=== PATIENT | female | born 1930 | race Caucasian/White ===

== ENCOUNTER 2018-08-31 12:47 | Emergency (ER) | payer MEDICARE ==
[~2018-08-31] VITALS: Ht 165.1 cm; Wt 81.6 kg
[~2018-08-31 12:47] MED LIST: AMITRIPTYLINE H25 MG PO; ASPIRIN EC81 MG PO; FIORICET MT; OMEGA 3 FISH O1 EACH PO; ONDANSETRON ODT4 M1 SL; ONE DAILY FOR1 EACH PO; PROBIOTIC & AC1 EACH PO; SIMVASTATIN20 MG PO; VITAMIN C500 M1 PO; VITAMIN D31000 UNI1 PO; VITAMIN E400 UNIT PO; Z PROPRANOLOL HCL PO; Z.0.AMITRIPTYLINE H7 PO; Z.0.AMLODIPINE BESY1 PO; Z.0.ASPIR 8181 MG PO; Z.0.CLONIDINE HCL0.1 PO; Z.0.LEVOTHYROXINE75 PO; Z.0.LISINOPRIL10 MG MT; Z.0.LISINOPRIL5 MG PO; Z.0.PREMARIN0.625 MG PO; Z.0.ZESTRIL20 MG PO; [UNRECOGNIZED DRUG - OTHER] PO
[2018-08-31] MEDS ORDERED: MORPHINE SULFATE 2 MG/ML SYR IV STA (13:04)
[2018-08-31] MEDS ORDERED: PHENAZOPYRIDINE HCL 100 MG TAB PO ONE (13:15)
[2018-08-31] MEDS ORDERED: MORPHINE SULFATE INJ 4 MG/ML INJ IV NR (13:15)
[2018-08-31] MEDS ORDERED: PROMETHAZINE 12.5MG/ NACL 0.9% 12.5 MG/50 ML BAG IV ONE (13:30)
[2018-08-31 13:31] LABS: BASOPHILS # (AUTO) 0.1 (0.0-0.1); BASOPHILS % 0.5 % (0.0-1.0); EOSINOPHILS # (AUTO) 0.2 (0.0-0.4); HEMATOCRIT 40.8 % (34.2-44.1); HEMOGLOBIN 13.7 g/dL (12.0-16.0); LYMPHOCYTES # (AUTO) 2.4 (1.0-3.2); LYMPHOCYTES % 21.7 % (18.0-39.1); MEAN CORPUSCULAR HEMOGLOBIN 29.6 pg (28-32); MEAN CORPUSCULAR HGB CONC 33.6 g/dL (31-35); MEAN CORPUSCULAR VOLUME 88.1 fL (81-99); MONOCYTES # (AUTO) 0.8 (0.2-0.8); MONOCYTES % 6.8 % (4.4-11.3); NEUTROPHILS # (AUTO) 7.5 (2.1-6.9); NEUTROPHILS % 68.2 % (38.7-80.0); PLATELET COUNT 222 x10e3/uL (140-360); RED BLOOD COUNT 4.63 x10e6/uL (3.6-5.1); RED CELL DISTRIBUTION WIDTH 14.1 % (11.7-14.4)
[2018-08-31 14:00] LABS: ALANINE AMINOTRANSFERASE 39 IU/L (0-55); ALBUMIN/GLOBULIN RATIO 1.2 (0.8-2.0); ALKALINE PHOSPHATASE 97 IU/L (40-150); AMYLASE 58 U/L (25-125); ANION GAP 13.6 mmol/L (8-16); BLOOD UREA NITROGEN 14 mg/dL (7-26); BUN/CREATININE RATIO 18 (6-25); CALCIUM 10.3 mg/dL (8.4-10.2); CARBON DIOXIDE 30 mmol/L (22-29); CHLORIDE 98 mmol/L (98-107); EST GLOMERULAR FILTRATION RATE > 60 ML/MIN (60-); GLUCOSE 96 mg/dL (74-118); LIPASE 46 U/L (8-78); POTASSIUM 3.6 mmol/L (3.5-5.1); SODIUM 138 mmol/L (136-145)
--- NOTE | 2018-08-31 14:23 | Diagnostic Imaging Report ---
EXAM: CT of the abdomen and pelvis WITHOUT contrast HISTORY: Blood in urine, UTI, abdominal pain, stone protocol COMPARISON: None available. TECHNIQUE: The abdomen and pelvis were scanned utilizing a multidetector helical scanner. Coronal and sagittal reformats are available. PROTOCOL: Stone protocol IV CONTRAST: None, which limits sensitivity and specificity of evaluation of the soft tissues and vascular structures. ORAL CONTRAST: None, which limits sensitivity and specificity of evaluation of the bowel. RADIATION DOSE: Total DLP: 513.85 mGy*cm Estimated effective dose: (DLP x 0.015 x size factor) Dose modulation, iterative reconstruction, and/or weight based adjustment of the mA/kV was utilized to reduce the radiation dose to as low as reasonably achievable. COMPLICATIONS: None FINDINGS: LOWER THORAX: Bilateral mild dependent atelectasis, which may be superimposed upon chronic interstitial lung disease. HEPATOBILIARY: No definite focal hepatic lesions. No biliary ductal dilatation. The gallbladder is unremarkable. SPLEEN: No splenomegaly. 2 coarse calcifications within the spleen. PANCREAS: No focal masses or ductal dilatation. Diffuse parenchymal atrophy. ADRENALS: No discrete adrenal nodule. KIDNEYS/URETERS: No hydronephrosis or solid mass lesion identified. A right punctate minimal calcification at the posterior aspect of the interpolar region. PELVIC ORGANS/BLADDER: The urinary bladder is partially decompressed. The wall appears diffusely thickened. PERITONEUM / RETROPERITONEUM: No free air or fluid. GI TRACT: On limited evaluation of the gastrointestinal tract, no dilation or wall thickening identified. LYMPH NODES: No pathologically enlarged lymph nodes. VESSELS: Scattered atherosclerotic vascular calcifications, including the coronary arteries. BONES: No aggressive osseous lesion or acute fracture. Multifocal degenerative changes, most notably severe at L5-S1. SOFT TISSUES: Unremarkable. IMPRESSION: 1. Nonspecific urinary bladder wall thickening, in the setting of hematuria, consider cystitis. Follow-up direct visualization/cystoscopy may be warranted for bladder cancer screening. 2. Punctate nonobstructing right renal calcification, a parenchymal calcification is favored over a urinary tract stone. Signed by: Dr. Alessandro Phillips D.O., M.M.M. on 08/31/2018 2:19 PM
[2018-08-31] MEDS ORDERED: HYDRALAZINE HCL 20 MG/ML VIAL IV STA (14:52)
[2018-08-31 17:03] LABS: CLARITY,URINE HAZY (CLEAR); COLOR,URINE YELLOW (YELLOW); LEUKOCYTE ESTERASE ,URINE 2+ (NEGATIVE); NITRITE,URINE POSITIVE (NEGATIVE)
[2018-08-31 17:04] LABS: BILIRUBIN,URINE NEGATIVE (NEGATIVE); KETONES,URINE NEGATIVE (NEGATIVE); PROTEIN,URINE DIPSTICK 2+ (NEGATIVE); URINE UROBILINOGEN 0.2 mg/dL (0.2 - 1)
[2018-08-31 17:05] LABS: BACTERIA,URINE MANY /HPF; EPITHELIAL CELLS,URINE RARE /LPF; WBC,URINE (MAN) >50 /HPF (0-5)
[2018-08-31] MEDS ORDERED: CEFTRIAXONE SOD 1 GM VIAL IV ONE (17:15)
== END 2018-08-31 18:27 | disposition home or self-care (01) ==
LOC: ER 12:47
DX: N30.01 Acute cystitis with hematuria (principal); E78.5 Hyperlipidemia, unspecified; M19.90 Unspecified osteoarthritis, unspecified site; M10.9 Gout, unspecified; G62.9 Polyneuropathy, unspecified; Z79.82 Long term (current) use of aspirin; Z88.6 Allergy status to analgesic agent; Z88.5 Allergy status to narcotic agent; Z88.8 Allergy status to other drugs, medicaments and biological substances
CPT/HCPCS: 36415; 74176; 80053; 81001; 82150; 83690; 85025; 87086; 99284; J0360; J0696; J2270